=== PATIENT | male | born 1950 ===

== ENCOUNTER 2023-01-26 08:23 | Outpatient (OUT) | payer MEDICARE, OTHER, SELFPAY ==
--- NOTE | 2023-01-26 09:07 | CA_ITS ---
Patient: ABRAHAM PRASAD Exam Date: 01/26/2023 : 1950 Gender:M Ordering : DR. GLORIA OLEA Admission #: [id number] Family : Order #: [id number] CLICK HERE TO VIEW EXAM ECHOCARDIOGRAM REPORT PROCEDURE: CA ECHO DOPPLER COMPLETE INDICATIONS: CAD COMPARISON: None. DESCRIPTION: COMPLETE ECHOCARDIOGRAM Real-time transthoracic echocardiography with 2D, M-mode, spectral and color flow Doppler performed. QUALITY: Technical quality was good. LEFT VENTRICLE: Normal chamber size. Proximal septal hypertrophy (sigmoid septum). LV EF: Global left ventricular systolic function is normal. Calculated left ventricular ejection fraction is 59% DIASTOLIC: Normal diastolic function. ATRIAL SEPTUM: Inadequately seen. LEFT ATRIUM: Normal chamber size. RIGHT ATRIUM: Mild dilatation. RIGHT VENTRICLE: Poorly seen. Appears enlarged. Normal right ventricular systolic function. TRICUSPID VALVE: Normal mobility and thickness. Trivial tricuspid regurgitation. No evidence of pulmonary hypertension. RVSP 28 mmHg MITRAL VALVE: Normal mobility and thickness. No evidence of mitral valve stenosis. There is no mitral annular calcification. Mild mitral regurgitation. AORTIC VALVE: Normal trileaflet appearance. Mildly calcified aortic valve. Normal leaflet mobility. No evidence of aortic valve stenosis. No aortic regurgitation. AORTIC ROOT: Normal diameter and appearance. PULMONIC VALVE: Normal thickness and mobility. No stenosis. Trivial regurgitation. PERICARDIUM: No evidence of pericardial effusion. IVC: Collapses with inspirations. Normal size. CONCLUSION: 1. Global left ventricular systolic function is normal; visually estimated ejection fraction is 55 to 60%. No significant wall motion abnormalities. 2. The right ventricle is poorly seen but appears enlarged right ventricular systolic function appears preserved. 3. The right atrium is mildly dilated. 4. Mild mitral regurgitation. Adult Echocardiography Procedure Report Left Ventricle LVEDD (3.7 - 5.6 cm): 4.72 cm LVESD (2.2 - 4.0 cm): 3.12 cm LVIVS thickness (0.6 - 1.2 cm): 1.21 cm LVPW thickness (0.5 - 1.0 cm): 1.13 cm e': 0.12 m/s E - e': 5.64 LVOT Max Gradient: 1.60 mm[Hg], 2.13 mm[Hg] LVOT Area (cm2): 0.68 m/s Peak Velocity (LVOT): 0.63 m/s, 0.73 m/s Mean Velocity (LVOT): 0.46 m/s LVOT Diameter 2.42 cm Left Ventricular Ejection Fraction: 58.52 % Left Atrium LA Volume Index (2D A2C): 28.91 ml/m2 Left Atrium Systolic Dimension: 4.41 cm Mitral Valve MV E to A Ratio: 1.19 Mitral Valve A-Wave Peak Velocity: 0.55 m/s Mitral Valve E-Wave Peak Velocity: 0.65 m/s Right Ventricle RV Internal Diastolic Dimension: 3.64 cm Aorta AO Root Diam: 3.50 cm Ascending Ao Diam: 2.94 cm Aortic Valve AoV Area ([place]): 2.91 cm2, 2.70 cm2 AoV Area (VTI): 2.99 cm2, 2.97 cm2 Peak Velocity(Antegrade Flow): 1.07 m/s Peak Gradient(Antegrade Flow): 4.61 mm[Hg] Mean Velocity(Antegrade Flow): 0.69 m/s Mean Gradient(Antegrade Flow): 2.26 mm[Hg] Velocity Time Integral: 23.69 cm Tricuspid Valve Peak Velocity (Regurgitant Flow): 1.85 m/s, 2.48 m/s Pulmonic Valve Peak Velocity: 0.99 m/s Peak Gradient: 3.92 mm[Hg] Right Atrium Right Atrium Systolic Pressure: 32.26 ml, 32.26 ml Dictated by: Isabella Fuentes M.D. on 01/27/2023 at 12:14 Approved by: Isabella Fuentes M.D. on 01/27/2023 at 12:20
--- NOTE | 2023-01-26 09:08 | ECG_ITS ---
[facility] Test Date: 2023-01-26 Pat Name: ABRAHAM PRASAD Department: Room: - Gender: Male Coordinating Producer: : [id number] Requested By: [id number] Order Number: [id number] Reading MD: CESAR MALDONADO Measurements Intervals [place] Rate: 49 P: 51 FL: 167 QRS: 44 QRSD: 107 T: -4 QT: 435 QTc: 395 Interpretive Statements SINUS BRADYCARDIA NONSPECIFIC T-WAVE ABNORMALITY No previous ECG available for comparison Electronically Signed On 01-26-2023 20:36:24 EDT by CESAR MALDONADO
== END 2023-01-26 08:24 ==
LOC: CARD 08:29
DX: I25.10 Atherosclerotic heart disease of native coronary artery without angina pectoris (principal); R00.1 Bradycardia, unspecified; R94.31 Abnormal electrocardiogram [ECG] [EKG]
CPT/HCPCS: 93005; 93306